=== PATIENT | male | born 1995 | race Caucasian/White ===

== ENCOUNTER 2022-08-19 04:12 | Emergency (ER) | payer OTHER ==
[~2022-08-19] VITALS: Ht 182.9 cm; Wt 100.0 kg
[2022-08-19 04:12] VITALS: TEMP 97.5
--- NOTE | 2022-08-19 05:00 | NUR ---
ETT 8.0 23@[facility] PER DR. WOODOSN. ASSISTED WITH INTUBATION, AND RAN BLOOD GAS (ARTERIAL AND VENOUS) SAMPLES. VENTILATED VIA AMBU BAG W/ POSITIVE COLOR CO2 CHANGE.
[2022-08-19 05:02] LABS: ALBUMIN 3.7 gm/dL (3.5-5.0); BILIRUBIN,TOTAL 0.3 mg/dL (0.2-1.2); CALCIUM 10.7 mg/dL (8.4-10.2); CREATININE, serum 2.58 mg/dL (0.72-1.25); MAGNESIUM 2.8 mg/dL (1.6-2.6); PHOSPHOROUS 10.1 mg/dL (2.3-4.7); POTASSIUM 3.3 mmol/L (3.5-4.5); TOTAL PROTEIN 6.8 gm/dL (6.2-8.1); TROPONIN-I 0.017 ng/mL (0.00-0.033)
[2022-08-19 05:03] LABS: HEMATOCRIT 57.2 % (42.0-52.0); HEMOGLOBIN 16.2 g/dl (13.5-18.0); MEAN CELL VOLUME 101 fl (80.0-100.0); MEAN CORPUSCULAR HEMOGLOBIN 29 pg (27-31); MEAN CORPUSCULAR HGB CONC 28 g/dl (33.0-37.0); MEAN PLATELET VOLUME 11.3 fl (7.4-10.4); PLATELET COUNT 276 K/mm3 (130-400); RED BLOOD COUNT 5.67 M/mm3 (4.20-5.60); REDCELL DISTRIBUTION WIDTH-CV 12.6 % (11.5-14.5)
[2022-08-19 05:04] LABS: INR 1.2 (0.8-3.0); PROTHROMBIN TIME 13.9 SECONDS (9.7-12.8)
[2022-08-19 05:22] LABS: TRICYCLIC ANTIDEPRESS URINE NEGATIVE
[2022-08-19 05:29] LABS: BAND 8 % (0-10); EOSINOPHIL 1 % (0-4); LYMPHOCYTE 24 % (20.0-51.0); NEUTROPHILS 62 % (42.0-75.2); PLATELET ESTIMATE NORMAL (NORMAL)
[2022-08-19 09:27] VITALS: PULSE 0
--- NOTE | 2022-08-19 12:44 | NUR ---
[facility] collaborated with ED director Rossana. Per Rossana, [employer] is at bedside and has verbalized that there is no support needed from SW to assist in finding/notifying family members.
== END 2022-08-19 09:16 | disposition expired ==
LOC: COL.ER 04:12
PROVIDERS: Family Medicine
DX: S05.42XA Penetrating wound of orbit with or without foreign body, left eye, initial encounter (principal); I46.9 Cardiac arrest, cause unspecified; R56.9 Unspecified convulsions; F14.90 Cocaine use, unspecified, uncomplicated; W19.XXXA Unspecified fall, initial encounter; Y92.149 Unspecified place in prison as the place of occurrence of the external cause
CPT/HCPCS: J0171; J0461; J1250; J1953; J2250; J7030